=== PATIENT | female | born 1985 | race Caucasian/White ===

== ENCOUNTER 2018-08-03 12:12 | Inpatient (IN) | payer OTHER ==
[~2018-08-03] VITALS: Ht 165.1 cm; Wt 78.5 kg
[2018-08-03] MEDS ORDERED: PRENATAL FORMU1 EAC2 PO (14:17)
[2018-08-03] MEDS ORDERED: ZANTAC150 M3 PO (14:19)
[2018-08-06] MEDS ORDERED: IBUPROFEN400 MG PO (09:11)
== END 2018-08-06 13:12 | disposition home or self-care (01) | DRG 766 ==
LOC: LDR 12:12 → SURG-SUITE 20:56
PROVIDERS: Obstetrics & Gynecology
PROC: 4A1HXCZ Monitoring of Products of Conception, Cardiac Rate, External Approach (ICD-10-PCS; 2018-08-03)
PROC: 4A033R1 Measurement of Arterial Saturation, Peripheral, Percutaneous Approach (ICD-10-PCS; 2018-08-03)
PROC: 10D00Z1 Extraction of Products of Conception, Low, Open Approach (ICD-10-PCS; principal; 2018-08-03 18:00)
DX: O32.1XX0 Maternal care for breech presentation, not applicable or unspecified (principal); Z3A.38 38 weeks gestation of pregnancy; Z37.0 Single live birth